=== PATIENT | female | born 1945 | race Caucasian/White ===

== ENCOUNTER 2018-03-06 02:35 | Day surgery (SDC) | payer MEDICARE, OTHER ==
[~2018-03-06] VITALS: Ht 157.5 cm; Wt 114.8 kg
[~2018-03-06 02:35] MED LIST: ALB6.7R INH; ALBU8.5H12 IH; ALP25 PO; ALPR-459 PO; ASPI-1471 PO; ATOR10TA24 PO; ATOR20TA22 PO; AZIT-1 PO; BIPAP; CHOL100058 PO; CHOL400C PO; CYAN1TAB68 PO; ERYT-83 PO; ESC10 PO; ESCI5TAB10 PO; GUIDMUD PO; HYDR-2966 PO; IBUP1TAB90 PO; IBUP200C74 PO; LEVO750T25 PO; LEVO750T44 PO; LISI-362 PO; LISI20TA29 PO; LOPE-101 PO; MENT1LOZ MM; MULT1TAB64 PO; NOR5/325 PO; OMEG-11 PO; OXYGEN INH; OXYGENHOME INH; PRE10 PO; UBID10CA11 PO; VITA-197 PO; ZINC50TA2 PO; ZOST19404 SQ; [UNRECOGNIZED DRUG - CODE] PO; [UNRECOGNIZED DRUG - CODE] PO; [UNRECOGNIZED DRUG - CODE] PO
[2018-03-06] MEDS ORDERED: LIDO/EPI 1% MDV 1:100,000 20ML INFIL ONE (07:19)
--- NOTE | 2018-03-06 07:31 | Post Operative Progress Note ---
Post Operative Progress Note Date: March 06, 2018 Time: 10:23 Surgeon: munir Anesthesia: dr kelly Pre-Op Diagnosis: screening colonoscopy diverticula at splenic flexure and 2 mm polyp proximal transverse colon and excision of skin lesion on back 15 mm by 15 mm Procedure(s): colonoscopy and excision of skin lesion on back KEYUR HATHAWAY MD March 06, 2018 07:31
--- NOTE | 2018-03-06 07:31 | Short(Outpt) Discharge Summary ---
Discharge Summary Reason for Hosp/Final Diag: (1) Encounter for screening colonoscopy Hospital Course & Plan: diverticula at splenic flexure, 2 mm polyp in proximal transverse colon. 15 mm by 15 mm skin lesion mid back Departure Discharge to: Home Discharge Instructions Home Meds Active Scripts Escitalopram Oxalate (LEXAPRO) 10 Mg Tab, 0.5 TAB PO QDAY, #45 TAB Prov:SNEHA MERINO MD 12/31/17 Hydrochlorothiazide (HYDROCHLOROTHIAZIDE) 25 Mg Tablet, 1 TAB PO QDAY, #90 TAB Prov:SNEHA MERINO MD 12/31/17 Lisinopril (LISINOPRIL) 20 Mg Tablet, 1 TAB PO QDAY, #30 TAB 3 Refills Prov:SNEHA MERINO MD 04/02/17 Atorvastatin Calcium (LIPITOR) 10 Mg Tablet, 1 TAB PO QHS, #90 TAB 3 Refills Prov:SNEHA MERINO MD 04/02/17 Reported Medications Ibuprofen/Diphenhydramine Cit (ADVIL PM CAPLET) 1 Each Tablet, 1 EACH PO QHS 02/28/18 Oxygen (OXYGEN) Inha, 4 L INH, L 4 liters at hs with BiPAP 06/28/16 Bipap Home (BIPAP HOME) Inha, HS 06/28/16 Ibuprofen (ADVIL) 200 Mg Capsule, 2 CAP PO QDAY Y for PAIN, CAPSULE 06/28/16 Multivitamin (MULTI VITAMIN DAILY) 1 Each Tablet, 1 TAB PO QDAY, TAB 06/28/16 [place]-3 Fatty Acids/Fish Oil (FISH OIL 1,000 MG CAPSULE) 1 Each Capsule, 1 CAP PO QDAY, CAPSULE 06/28/16 Ubidecarenone (CO Q-10) 10 Mg Capsule, 1 CAP PO QDAY, CAPSULE 06/28/16 Zinc Amino Acid Chelate (ZINC) 50 Mg Tablet, 2 TAB PO QDAY, TAB 06/28/16 Cholecalciferol (Vitamin D3) (VITAMIN D) 1,000 Unit Capsule, 1 CAP PO QDAY, CAPSULE 06/28/16 Cyanocobalamin/Folic Acid (VITAMIN E32-ZGYCP ACID TABLET) 1 Each Tablet, 1 EACH PO DAILY 09/15/14 Aspirin (ASPIR 81) 81 Mg Tablet.dr, 1 TAB PO QDAY, TAB 09/15/14 Discontinued Reported Medications Vitamin E Mixed (VITAMIN E) 400 Unit Capsule, 1 CAP PO QDAY, CAPSULE 06/28/16 Discontinued Scripts Alprazolam (ALPRAZOLAM) 0.25 Mg Tab.rapdis, 0.5-1 TAB PO TID Y for ANXIETY, #45 TAB 0 Refills Prov:SNEHA MERINO MD 06/28/16 Diet: High Fiber Activity: As Tolerated KEYUR HATHAWAY MD March 06, 2018 07:31
[2018-03-06] MEDS ORDERED: LIDOCAINE MPF 1% 5 ML VIAL ONE (07:54)
[2018-03-06] MEDS ORDERED: PROPOFOL EMUL(*) 10MG/ML 20 ML 60 ML ONE (07:54)
[2018-03-06] MEDS ORDERED: LIDOCAINE/SOD BICARB 8.4% SYR ID ONE (08:42)
[2018-03-06 08:51] VITALS: BP 153/90
[2018-03-06] MEDS ORDERED: NORMOSOL R SOLN(*) 1000 ML BAG 1,000 ML IV PRN (09:00)
[2018-03-06] MEDS ORDERED: GLYCOPYRROLATE 0.2MG/ML 1 ML INJ IVP ONE (09:15)
[2018-03-06 10:21] VITALS: BP 79/73
[2018-03-06 10:45] VITALS: BP 123/63
[2018-03-06 11:04] VITALS: BP 136/79
[2018-03-06 11:05] VITALS: BP 156/84
--- NOTE | 2018-03-06 16:16 | OPERATIVE REPORT 1 ---
EVENT DATE: March 06, 2018 SURGEON: Alexandro Marroquin MD ANESTHESIOLOGIST: Sarkis Holden MD ANESTHESIA: Sedation. PREOPERATIVE DIAGNOSES 1. Screening colonoscopy. 2. Nonhealing skin lesion in the mid back. POSTOPERATIVE DIAGNOSES 1. Diverticula at the splenic flexure. 2. A 2 mm polyp in the proximal transverse colon. 3. A 15 mm x 15 mm nonhealing wound mid back. PROCEDURES PERFORMED 1. Colonoscopy with polypectomy. 2. Excision of skin lesion mid back. DESCRIPTION OF PROCEDURE Patient was placed in the left lateral decubitus position and given intravenous sedation. Rectal exam was unremarkable. Flexible colonoscope was inserted and advanced to the cecum. She had an excellent bowel prep. Ileocecal valve, base of the cecum, and appendiceal orifice were identified. Scope was slowly withdrawn. No mucosal abnormalities were noted in the cecum or right colon. In the proximal transverse colon, she had a 2 mm polypoid projection. This was removed with the cold cup. The rest of the transverse colon was normal. She had a couple of diverticula at the splenic flexure. Descending and sigmoid colon were normal. Rectum was normal. Scope was retroflexed. That appeared to be normal. Patient will require colonoscopy in five years if that polyp is adenomatous. We then prepped and draped her mid back. She had a 15 mm x 15 mm crusted, firm area. This was elliptically excised. Hemostasis was obtained with electrocautery. Specimen sent for pathology. It was reapproximated with interrupted 3-0 nylon. Sterile bandage was placed. Patient tolerated the procedure well with no apparent complication. [facility]
== END 2018-03-06 11:25 | disposition home or self-care (01) ==
LOC: OR 02:35
PROVIDERS: ATTEND Surgery
DX: Z12.11 Encounter for screening for malignant neoplasm of colon (principal); K63.5 Polyp of colon; K57.30 Diverticulosis of large intestine without perforation or abscess without bleeding; L82.1 Other seborrheic keratosis; L72.0 Epidermal cyst
CPT/HCPCS: 00811; 11404; 45380; 88305; J2001; J2704; J3490

== ENCOUNTER → 2018-04-10 | Outpatient (CLI) | payer MEDICARE, OTHER ==
[~2018-04-10] MED LIST changes: +CHOL500045 PO; +CINN500C12 PO; +MAGN250T34 PO
== END ==
LOC: LAB 16:31
PROVIDERS: ATTEND Internal Medicine
DX: E78.00 Pure hypercholesterolemia, unspecified (principal); I10 Essential (primary) hypertension; E55.9 Vitamin D deficiency, unspecified
CPT/HCPCS: 36415; 82040; 82247; 82306; 82310; 82374; 82435; 82465; 82565; 82947; 83718; 84075; 84132; 84155; 84295; 84450; 84460; 84478; 84520

== ENCOUNTER → 2018-11-18 | Outpatient (CLI) | payer MEDICARE, OTHER ==
[~2018-11-18] MED LIST changes: +FLU180SY11 IM; +PNEU0.5D3 IM; +VENL37.53 PO; +VENL75CA58 PO
--- NOTE | 2018-11-19 08:37 | RADIOLOGY IMAGING REPORT ---
FACILITY: [facility] PATIENT NAME: HERIBERTO BROOKE : [id number] MR: [id number] V: [id number] EXAM DATE: ORDERING PHYSICIAN: SNEHA MERINO TECHNOLOGIST: Leticia Oliveros PROCEDURE:BILATERAL DIGITAL SCREENING MAMMOGRAM WITH CAD ASSISTED INTERPRETATION & 3D TOMOSYNTHESIS COMPARISON:Prior mammograms 01/15/14, 11/27/12. INDICATIONS:screen FINDINGS: Scattered fibroglandular densities are seen throughout the breasts. Most of the parenchymal pattern has remained stable allowing for difference in mammographic technique & patient positioning. There are loosely grouped round calcifications in the deep central Right breast slightly increased in number when compared to the prior study although these have a relatively benign configuration. DIAGNOSTIC CATEGORY 2--BENIGN FINDING. RECOMMENDATIONS: ROUTINE MAMMOGRAM AND CLINICAL EVALUATION. IMPRESSION: BIRADS 2: Benign finding. No significant abnormality is seen. Dictated by: America tSallings M.D. on 11/18/2018 at 16:47 Transcribed by: ARTHUR on 11/19/2018 at 7:56 Approved by: America Stallings M.D. on 11/19/2018 at 8:36 [facility]
== END ==
LOC: MAMO 01:25
PROVIDERS: ATTEND Internal Medicine
DX: Z12.31 Encounter for screening mammogram for malignant neoplasm of breast (principal); R92.1 Mammographic calcification found on diagnostic imaging of breast
CPT/HCPCS: 77063; 77067

== ENCOUNTER → 2018-12-18 | Outpatient (CLI) | payer MEDICARE, OTHER | LOC: LAB 10:51 | PROVIDERS: ATTEND Internal Medicine | DX: E78.5 Hyperlipidemia, unspecified (principal); I10 Essential (primary) hypertension | CPT/HCPCS: 36415; 82040; 82247; 82310; 82374; 82435; 82465; 82565; 82947; 83718; 84075; 84132; 84155; 84295; 84450; 84460; 84478; 84520 ==

== ENCOUNTER → 2019-01-13 | Outpatient (CLI) | payer MEDICARE, OTHER ==
[~2019-01-13] MED LIST changes: +ALBU8.5H IH
== END ==
LOC: RESP 02:23
PROVIDERS: ATTEND Emergency Medicine
DX: J44.9 Chronic obstructive pulmonary disease, unspecified (principal)
CPT/HCPCS: 94060; 94726; 94729

== ENCOUNTER → 2019-02-04 | Outpatient (CLI) | payer MEDICARE, OTHER ==
[~2019-02-04] MED LIST changes: +HYDR-4225 PO
== END ==
LOC: LAB 10:34
PROVIDERS: ATTEND Emergency Medicine
DX: R74.8 Abnormal levels of other serum enzymes (principal); I10 Essential (primary) hypertension; J96.11 Chronic respiratory failure with hypoxia; R06.00 Dyspnea, unspecified
CPT/HCPCS: 36415; 82248; 82607; 82728; 83540; 83550; 83880; 86706; 86707; 87340; 87350; G0472; 82040; 82247; 82310; 82374; 82435; 82465; 82565; 82947; 83718; 84075; 84132; 84155; 84295; 84450; 84460; 84478; 84520; 86803

== ENCOUNTER → 2019-03-02 | Outpatient (CLI) | payer MEDICARE, OTHER | LOC: LAB 10:29 | PROVIDERS: ATTEND Emergency Medicine | DX: I10 Essential (primary) hypertension (principal) | CPT/HCPCS: 36415; 82310; 82374; 82435; 82565; 82947; 84132; 84295; 84520 ==

== ENCOUNTER → 2019-03-24 | Outpatient (CLI) | payer MEDICARE, OTHER ==
--- NOTE | 2019-03-24 17:47 | RADIOLOGY IMAGING REPORT ---
FACILITY: [facility] - [place] PATIENT NAME: Chetan Chappell : 1945 MR: [id number] V: [id number] EXAM DATE: ORDERING PHYSICIAN: THAO العراقي TECHNOLOGIST: [place] [facility] [place] Patient: Chetan Chappell : 1945 Visit/Account:[id number] Date of Sevice: 03/24/2019 TRANSVAGINAL NON-OB HISTORY: POSTMENOPAUSAL BLEEDING TECHNIQUE: Transvaginal ultrasound pelvis. COMPARISON: None. FINDINGS: Uterus: ; 5.6 cm length x 3.6 cm AP x 4.2 cm transverse. Myometrium: There is a 9 mm well-circumscribed hypoechoic mass in the anterior lower uterine segment likely representing a fibroid.. Endometrium: Endometrium appears thickened and lobular with an adjacent 7 mm echogenic mass; double t hickness 11.1 mm. Cervix: Grossly negative. Ovaries: Right - not visualized Left - not visualized Adnexa: Grossly unremarkable. Free pelvic fluid: None. IMPRESSION: The endometrium appears thickened and lobular. There is a echogenic 7 mm mass adjacent which may rep resent a polyp although other endometrial pathology is included in the differential diagnosis 9 mm probable fibroid lower uterine segment Report Dictated By: America Stallings MD at 03/24/2019 5:39 PM Report E-Signed By: America Stallings MD at 03/24/2019 5:42 PM WSN:[email or web address]
== END ==
LOC: US 00:24
PROVIDERS: ATTEND Obstetrics & Gynecology
DX: Z02.9 Encounter for administrative examinations, unspecified (principal)
CPT/HCPCS: 76830

== ENCOUNTER → 2019-03-26 | Outpatient (CLI) | payer MEDICARE, OTHER ==
[~2019-03-26] MED LIST changes: +LISI30TA49 PO
--- NOTE | 2019-03-26 15:17 | EKG ---
FACILITY: [facility] - [place] PATIENT NAME: HERIBERTO BROOKE : [id number] MR: [id number] V: [id number] EXAM DATE: ORDERING PHYSICIAN: LOIDA LEAL TECHNOLOGIST: AUG[place]A Test Reason : PRE OP Blood Pressure : / mmHG Vent. Rate : 078 BPM Atrial Rate : 078 BPM P-R Int : 156 ms QRS Dur : 078 ms QT Int : 374 ms P-R-T Axes : 058 027 078 degrees QTc Int : 426 ms Normal sinus rhythm Low voltage QRS Borderline ECG No previous ECGs available Confirmed by BRETT ROMO ([id number]) on 03/26/2019 6:20:08 PM Referred By: MEL Confirmed By:BRETT ROMO
[2019-03-26 16:02] LABS: PLATELET COUNT, AUTOMATED 247 K/uL (150-450)
--- NOTE | 2019-03-26 17:45 | RADIOLOGY IMAGING REPORT ---
FACILITY: [facility] - [place] PATIENT NAME: Chetan Chappell : 1945 MR: [id number] V: [id number] EXAM DATE: ORDERING PHYSICIAN: LOIDA LEAL TECHNOLOGIST: Location: [facility] - [place] Patient: Chetan Chappell : 1945 Visit/Account:[id number] Date of Sevice: 03/26/2019 Exam type: CHEST PA LAT History: Essential hypertension, preop Comparison: July 26, 2010. Findings: The lungs are free of acute effusions, infiltrates or edema. The cardiac silhouette is normal in siz e. The trachea is in midline. There are moderate spondylotic changes of the thoracic spine. IMPRESSION: 1. No acute cardiopulmonary process is seen Report Dictated By: America Stallings MD at 03/26/2019 5:40 PM Report E-Signed By: Amreica Stallings MD at 03/26/2019 5:41 PM WSN:[email or web address]
== END ==
LOC: RESP 14:58
PROVIDERS: ATTEND Emergency Medicine
DX: I10 Essential (primary) hypertension (principal); R94.31 Abnormal electrocardiogram [ECG] [EKG]
CPT/HCPCS: 36415; 71046; 82310; 82374; 82435; 82565; 82947; 84132; 84295; 84520; 85025; 93005

== ENCOUNTER 2019-04-02 00:29 | Day surgery (SDC) | payer MEDICARE, OTHER ==
[~2019-04-02] VITALS: Ht 157.5 cm; Wt 118.8 kg
[~2019-04-02 00:29] MED LIST changes: +LISI-374 PO
[2019-04-02 08:00] VITALS: BP 140/87
[2019-04-02] MEDS ORDERED: ACETAMINOPHEN(*)1000 MG/100 ML 100 ML IVPB ONE (09:25)
[2019-04-02] MEDS ORDERED: LIDOCAINE 1%MDV(*)200 MG/20 ML 1 ML ONE (09:34)
[2019-04-02] MEDS ORDERED: SUCCINYLCHOL CHL 100MG/5ML SYR IVP ONE (09:36)
[2019-04-02] MEDS ORDERED: PROPOFOL EMUL(*) 10MG/ML 20 ML 20 ML ONE (09:36)
[2019-04-02] MEDS ORDERED: DEXAMETHASONE SOD PHOS 10MG/ML ONE (09:36)
[2019-04-02] MEDS ORDERED: ONDANSETRON 4 MG/2 ML VIAL ONE (09:36)
[2019-04-02] MEDS ORDERED: MIDAZOLAM 2 MG/2 ML VIAL IVP PRN (12:00)
[2019-04-02] MEDS ORDERED: LIDOCAINE/SOD BICARB 8.4% SYR ID ONE (12:00)
[2019-04-02] MEDS ORDERED: FAMOTIDINE 20 MG TAB PO ONE (12:00)
[2019-04-02] MEDS ORDERED: NORMOSOL R SOLN(*) 1000 ML BAG 1,000 ML IV PRN (12:00)
[2019-04-02] MEDS ORDERED: fentaNYL CITR 100 MCG/2 ML AMP ONE (12:02)
[2019-04-02] MEDS ORDERED: IBUP600T22 PO (12:32)
--- NOTE | 2019-04-02 12:36 | OB/GYN Discharge Summary ---
Discharge Summary Reason for Hosp/Final Diag: (1) Postmenopausal bleeding Status: Acute Hospital Course & Plan: Patient underwent an uncomplicated hysteroscopy with dilation and endometrial sampling. Lates Vital Signs Vital Signs Date Time Temp Pulse Resp B/P (MAP) Pulse Ox O2 Delivery O2 Flow Rate FiO2 04/02/19 12:29 61 20 95 04/02/19 08:00 98.5 140/87 (104) Room Air Weight (Pounds): 262 Condition: No Change Discharge: Home, Self Group Home Meds Active Scripts Lisinopril (LISINOPRIL) 40 Mg Tablet, 40 MG PO QDAY, #30 TAB 0 Refills Prov:LOIDA LEAL MD 03/30/19 Atorvastatin Calcium (LIPITOR) 10 Mg Tablet, 1 TAB PO QHS, #90 TAB 3 Refills Prov:LOIDA LEAL MD 03/26/19 Hydroxyzine Hcl (HYDROXYZINE HCL) 25 Mg Tablet, 0.5 TAB PO QID for Anxiety, #30 TAB 11 Refills Prov:LOIDA LEAL MD 03/02/19 Venlafaxine Hcl (EFFEXOR XR) 75 Mg Cap.er.24h, 1 CAP PO QDAY, #90 CAP 1 Refill Prov:SNEHA MERINO MD 12/18/18 Reported Medications Magnesium Oxide (MAGNESIUM) 250 Mg Tablet, 1 TAB PO 3XW 04/10/18 Cinnamon Bark (CINNAMON) 500 Mg Capsule, 2 CAP PO DAILY, 04/10/18 Cholecalciferol (Vitamin D3) (VITAMIN D) 5,000 Unit Tablet, 1 TAB PO QDAY, CAPSULE 04/10/18 Ibuprofen/Diphenhydramine Cit (ADVIL PM CAPLET) 1 Each Tablet, 1 EACH PO QHS 02/28/18 Oxygen (OXYGEN) Inha, 4 L INH, L 4 liters at hs with BiPAP 06/28/16 Bipap Home (BIPAP HOME) Inha, HS 06/28/16 Ibuprofen (ADVIL) 200 Mg Capsule, 2 CAP PO QDAY PRN for PAIN, CAPSULE 06/28/16 Multivitamin (MULTI VITAMIN DAILY) 1 Each Tablet, 1 TAB PO QDAY, TAB 06/28/16 [place]-3 Fatty Acids/Fish Oil (FISH OIL 1,000 MG CAPSULE) 1 Each Capsule, 1 CAP PO QDAY, CAPSULE 06/28/16 Ubidecarenone (CO Q-10) 10 Mg Capsule, 1 CAP PO 3XW, CAPSULE 06/28/16 Zinc Amino Acid Chelate (ZINC) 50 Mg Tablet, 1 TAB PO 3XW, TAB 06/28/16 Cyanocobalamin/Folic Acid (VITAMIN G53-XCJLH ACID TABLET) 1 Each Tablet, 1 EACH PO DAILY 09/15/14 Aspirin (ASPIR 81) 81 Mg Tablet.dr, 1 TAB PO QDAY, TAB 09/15/14 Discontinued Scripts Albuterol Sulfate 90 Mcg/Act (PROAIR HFA 90 MCG/ACT) 8.5 Gm Hfa.aer.ad, 2 PUFF IH Q4-6H, #1 INHALER 3 Refills Prov:LOIDA LEAL MD 01/06/19 Lisinopril (LISINOPRIL) 30 Mg Tablet, 30 MG PO QDAY, #90 TAB 3 Refills Prov:LOIDA LEAL MD 03/27/19 Lisinopril (LISINOPRIL) 20 Mg Tablet, 1.5 TAB PO QDAY, #135 TAB 3 Refills Prov:LOIDA LEAL MD 03/26/19 Follow up with: [facility] [phone] (Follow Up with Dr. Barksdale in one week. ) Discharge Diet: As Tolerates Discharge Activity: As Tolerates, Pelvic Rest (Nothing in vagina for 2 weeks. ) THAO BARKSDALE DO Apr 02, 2019 12:35
--- NOTE | 2019-04-02 12:46 | Post Operative Note ---
Operative Note - [facility] Operative Day Date: Apr 02, 2019 Time: 10:00 Physicians Surgeon: Dr. Barksdale Wrapper Sheeter: Dr. Alexander Anesthesia: General endotracheal Diagnosis Pre-Op Diagnosis: Postmenopausal bleeding with thickened endometrial stripe on ultrasound Post-Op Diagnosis: Same as above Procedure Findings: cervical stenosis, intrauterine synechiae Procedure(s): Hysteroscopy, dilation and enodmetrial sampling Specimen Removed:(Maybe N/A): Endometrial tissue Complications: None Fluids Estimated Blood Loss: Minimal Dictated Date OP Note Dictated: Apr 02, 2019 THAO BARKSDALE DO Apr 02, 2019 12:46
[2019-04-02 12:55] VITALS: BP 109/66
[2019-04-02 13:30] VITALS: BP 108/75
--- NOTE | 2019-04-02 13:59 | OPERATIVE REPORT 1 ---
EVENT DATE: April 02, 2019 SURGEON: Shobha Barksdale DO ANESTHESIOLOGIST: Demarcus Dos Santos MD ANESTHESIA: General. AIR ANALYSIS ENGINEERING TECHNICIAN: Julien Alexander DO PREOPERATIVE DIAGNOSIS Postmenopausal bleeding with thickened endometrial stripe. POSTOPERATIVE DIAGNOSIS Postmenopausal bleeding with thickened endometrial stripe. PROCEDURE PERFORMED Hysteroscopy with dilation and endometrial sampling. ESTIMATED BLOOD LOSS Minimal. TISSUES REMOVED Endometrial sampling. COMPLICATIONS None. DISPOSITION Stable to recovery room. DESCRIPTION OF PROCEDURE After informed consent was obtained, the patient was taken to the operating room. She was placed on the operating table in the dorsal lithotomy position and prepped and draped in normal sterile fashion. General anesthesia was administered and found to be adequate. Time-out was performed. Exam under anesthesia was then performed after prepping and draping. The uterus was very difficult to feel due to patient's morbid obesity. Her cervix was palpated and was noted to be very high in the vaginal canal. There was no prolapse noted. The vaginal tissue all appeared normal and external genitalia did appear normal, however atrophic. No lesions were identified on the external genitalia. At this time, an operative speculum was placed into the vagina. The cervix was visualized and grasped with a single tooth tenaculum along the anterior aspect and placed on tension. Gentle dilation was performed, allowing us to enter into the cervix using graduated dilators. After dilation, the hysteroscope was introduced into the cervix and then into the uterine cavity. The uterine cavity had a significant amount of synechiae present. There were no obvious masses appreciated. However, visualization was limited due to the presence of the synechiae. During the hysteroscopy, our fluid deficit was noted to be rising and was approaching 600 cc. At this time, the hysteroscope was turned off and the procedure was abandoned due to concerns for possible perforation. However, prior to removing the hysteroscope, after I turned off my fluids, I did do a thorough look through the uterine cavity and there were no signs of uterine perforation. There was no visualization of omentum or bowel structures. It is possible that the fluid deficit developed as an error due to the Equinox machine or possibly due to flow through the fallopian tubes. However, I was not even able to visualize the tubal ostia so I do doubt that. The hysteroscope was withdrawn at this time and due to the possibility of an undiagnosed uterine perforation, I did elect to sample the patient using an endometrial pipelle because of its atraumatic nature. Endometrial pipelle was placed into the uterine cavity and three samples were obtained and placed into a formalin specimen. I also did have my partner, Dr. Julien Alexander, attend the procedure. He did look in the uterine cavity as well with the hysteroscope after the fluid was turned off at the same time I did just to ensure that he did not see a uterine perforation; he did not either. After the sampling, this was the end of our procedure. The single-tooth tenaculum was removed. Tenaculum sites were made hemostatic with application of silver nitrate. After hemostasis was ensured, the operative speculum was removed and this was the end of our procedure. All sponge, lap and instrument counts were correct and patient was taken to the recovery room in stable condition. DAMIEN
[2019-04-02 14:14] VITALS: BP 156/89
[2019-04-02 14:16] VITALS: BP 160/80
== END 2019-04-02 12:55 | disposition home or self-care (01) ==
LOC: OR 00:29
PROVIDERS: ATTEND Obstetrics & Gynecology
DX: N88.2 Stricture and stenosis of cervix uteri (principal); N95.0 Postmenopausal bleeding; R93.89 Abnormal findings on diagnostic imaging of other specified body structures; I10 Essential (primary) hypertension; E78.5 Hyperlipidemia, unspecified; E66.01 Morbid (severe) obesity due to excess calories; Z68.42 Body mass index [BMI] 45.0-49.9, adult
CPT/HCPCS: 58558; 94660; A9270; J0131; J0330; J1100; J2001; J2405; J2704; J3010

== ENCOUNTER → 2019-04-28 | Outpatient (CLI) | payer MEDICARE, OTHER ==
[~2019-04-28] MED LIST changes: +FOSF3PAC3 PO; +IBUP600T22 PO
[2019-04-28 12:39] LABS: PLATELET COUNT, AUTOMATED 253 K/uL (150-450)
--- NOTE | 2019-04-28 19:32 | RADIOLOGY IMAGING REPORT ---
FACILITY: [facility] [place] PATIENT NAME: Chetan Chappell : 1945 MR: [id number] V: [id number] EXAM DATE: ORDERING PHYSICIAN: THAO العراقي TECHNOLOGIST: Location: [facility] Patient: Chetan Chappell : 1945 Visit/Account:[id number] Date of Sevice: 04/28/2019 EXAMINATION: CTA of the chest with IV contrast HISTORY: Elevated d-dimer. The patient reported underwent hysterectomy one week ago. TECHNIQUE: Pulmonary embolus protocol - Thin axial CT images of the chest were obtained with IV con trast during maximal pulmonary arterial opacification. Reconstruction of the source data includes mul tiplanar 2D coronal and sagittal reconstructed images, and 3D coronal and sagittal MIP images. Repres entative images have been stored on PACS. One of the following dose optimization techniques was utilized in the performance of this exam: Autom ated exposure control; adjustment of the mA and/or kV according to the patient's size; or use of an i terative reconstruction technique. Specific details can be referenced in the facility's radiology C T exam operational policy. Contrast: 75 mL of IV Isovue-[id number]. COMPARISON: None. FINDINGS: Pulmonary arteries: The pulmonary arteries are well opacified, without suspicious filling defect. Heart, aorta, and great vessels: Normal caliber thoracic aorta, without aneurysm or dissection. Joshua nary artery calcifications. Normal heart size. No pericardial effusion. Lungs and pleura: Slight scarring or atelectasis at the lung bases. No suspicious focal consolidatio n. No pleural effusion or pneumothorax. Mediastinum and yari: Negative. Visualized upper abdomen: There are a few bubbles of free intraperitoneal air in the upper left abdo men adjacent to the splenic flexure of the colon. This may be within normal limits for the postsurgic al timeframe. Chest wall: There is a small amount of subcutaneous emphysema tracking along the soft tissues of the lower anterior left chest wall overlying the chest wall musculature. No localized fluid collection o r hematoma. Bones: No acute osseous findings. Multilevel degenerative changes along the spine. IMPRESSION: 1. No evidence of pulmonary embolism. 2. Slight scarring or atelectasis at the lung bases. The lungs are otherwise clear. 3. There are a few bubbles of free air in the left upper abdomen near the splenic flexure of the colo n. This may be within normal limits for the postsurgical timeframe. 4. Additional small amount of subcutaneous emphysema along the lower anterior left chest wall may als o be postsurgical. Findings were discussed with THAO العراقي at 04/28/2019 7:15 PM. Report Dictated By: Amor Hayden MD at 04/28/2019 7:03 PM Report E-Signed By: Amor Hayden MD at 04/28/2019 7:26 PM WSN:[id number]
== END ==
LOC: LAB 11:57
PROVIDERS: ATTEND Obstetrics & Gynecology
DX: J98.11 Atelectasis (principal); R79.89 Other specified abnormal findings of blood chemistry; R41.0 Disorientation, unspecified; R60.9 Edema, unspecified
CPT/HCPCS: 36415; 71275; 83880; 85025; 85379; 87077; 87088; 87186; Q9967; 82040; 82247; 82310; 82374; 82435; 82565; 82947; 84075; 84132; 84155; 84295; 84450; 84460; 84520